=== PATIENT | female | born 1960 | race Caucasian/White ===

== ENCOUNTER 2018-06-08 11:16 | Inpatient (IN) | payer OTHER ==
[2018-06-08 12:20] LABS: #Basophils 0.1 thou/uL (0.0-0.2); #Eosinphils 0.1 thou/uL (0.0-0.7); #Lymphocytes 1.7 thou/uL (1.20-3.40); #Monocytes 0.7 thou/uL (0.11-0.59); #Neutrophils 7.3 thou/uL (1.40-6.50); %Basophils 0.6 % (0.0-1.0); %Eosinophils 1.1 % (0.0-10.0); %Lymphocytes 17.7 % (21.0-51.0); %Monocytes 6.8 % (0.0-10.0); %Neutrophils 73.8 % (42.0-75.0); Hemoglobin 12.3 g/dL (12.0-16.0); Mean Corpuscular HGB CONC 33.2 g/dL (32.0-36.0); Mean Corpuscular Volume 84.3 fL (78.0-98.0); Mean Platelet Volume 6.8 fL (7.4-10.4); Platelet Count 209 thou/uL (130-400); RBC Distribution Width 12.5 % (11.5-14.5); White Blood Cell (WBC) Count 9.8 thou/uL (4.8-10.8)
[2018-06-08 12:23] LABS: ALT (SGPT) 38 U/L (8-55); AST (SGOT) 29 U/L (5-34); Albumin 3.6 g/dL (3.5-5.0); Alkaline Phosphatase 131 U/L (40-150); Anion Gap 14 mmol/L (10-20); BUN (Urea Nitrogen) 12 mg/dL (9.8-20.1); Bilirubin, Total 0.9 mg/dL (0.2-1.2); CK (CPK) 29 U/L (29-168); Calc. Creatinine Clearance 0 mL/min (70-130); Carbon Dioxide 25 mmol/L (22-29); Chloride 107 mmol/L (98-107); Estimated GFR-MDRD 68; Globulin 3.2 g/dL (2.4-3.5); Glucose 109 mg/dL (70-105); Protein, Total 6.8 g/dL (6.0-8.3); Sodium 142 mmol/L (136-145)
[2018-06-08 12:26] LABS: CKMB 0.5 ng/mL (0-6.6); Troponin I 0.017 ng/mL (< 0.028)
[2018-06-08 13:09] LABS: PTT 29.1 SEC (22.9-36.1); Prothrombin Time 13.6 SEC (12.0-14.7)
--- NOTE | 2018-06-08 13:11 | CT ---
CTA OF THE CHEST WITH CONTRAST: Comparison: None. History: Shortness of breath, fever, Chest pain extending into the right arm. Technique: Multiple contiguous axial images were obtained in a CTA of the chest per pulmonary embolis m protocol. 3D oblique MIP reformats and direct coronal reformats were performed. FINDINGS: There are small pulmonary emboli within the subsegmental branches in the bowel lower lobes. No emboli are seen within the main pulmonary arteries. There is no shift of the intraventricular septum. Globa l cardiomegaly is seen. No hilar or mediastinal lymphadenopathy are present. There are airspace opacities in both lower lobes which may represent acute infiltrate. There is a sma ll right pleural effusion. No pneumothorax is present. No suspicious pulmonary nodule is seen. There are cysts in the liver. The other visualized subdiaphragmatic structures are unremarkable. The osseous structures and chest wall soft tissues are unremarkable. IMPRESSION: 1. Small bilateral pleural emboli in the lower lobes. 2. Bilateral lower lobe atelectasis versus infiltrates. 3. Hepatic cysts. Dr. Davidson notified of the findings at 1247 p.m. on 06-08-18. POS: [facility]
[2018-06-08] MEDS ORDERED: Enoxaparin Sodium 80 MG/0.8 ML SYRINGE ONE (13:37)
[2018-06-08 15:43] VITALS: BMI 26.2
[2018-06-08] MEDS ORDERED: Acetaminophen 325 MG TAB PO PRN (16:44)
[2018-06-08] MEDS ORDERED: Bisacodyl 5 MG TAB PO PRN (17:47)
[2018-06-08] MEDS ORDERED: Acetaminophen 650 MG Suppository PR PRN (17:47)
[2018-06-08] MEDS ORDERED: Acyclovir 400 mg Tablet PO PRN (17:49)
[2018-06-08] MEDS ORDERED: ADALIMUMAB 10 MG SC SCH (18:00)
--- NOTE | 2018-06-08 18:29 | HP ---
PRIMARY CARE PROVIDER: Mina Langston M.D. CHIEF COMPLAINT: Chest pain. HISTORY OF PRESENT ILLNESS: Ms. Cason is a pleasant 57-year-old lady who was seen at [facility] on following transfer from [facility]. She has a history of DVT and PE, provoked, 3 years ago. She was treated with Xarelto for 6 months an d has since been taking aspirin. She and her went on a trip to [place] for 3 days and returned 2 nights ago. She reports arline t she drove a little but was mostly in the vehicle as a passenger. She did notice discomfort in both legs but attributed it to sitting in a vehicle for the duration of the drip. She reports that yesterday, she started having pain in her right shoulder. The pain subsequently yoshi rated across her chest. She reports that it is on and off, sharp, 3/10, worse with deep breathing, n ot accompanied by cough, nausea or vomiting. She denies any dysuria or increased frequency of urinat ion. She also reports a temperature of 101 degrees Fahrenheit at home. REVIEW OF SYSTEMS: All other systems reviewed and found to be negative. PAST MEDICAL HISTORY: Crohn's disease, pulmonary embolism, deep vein thrombosis, positive test for t uberculosis. PAST SURGICAL HISTORY: Stomach resection. SOCIAL HISTORY: Occasional alcohol use, no tobacco use or recreational drug use. FAMILY HISTORY: Patient's sister has pulmonary embolism. Her mother of pulmonary embolism. ALLERGIES: No known drug allergies. CURRENT MEDICATIONS: Acyclovir 400 mg as directed, Humira 10 mg as directed, aspirin 81 mg daily, ca lcium carbonate 500 mg daily, vitamin D3 of 2500 units daily, vitamin B12 of 2500 mcg sublingually da delfin, multivitamins 1 tablet daily, omeprazole 40 mg daily, pyridoxine 100 mg daily, vitamin C/vitamin E/Lutein 1 capsule daily. PHYSICAL EXAMINATION: GENERAL: Ms. Cason is awake and alert, not in acute distress. VITAL SIGNS: Blood pressure is 117/72, pulse 105, respiratory rate 16, and oxygen saturation 94% on room air. Temperature here is 99.4. At [facility] ER, she had a T-max of 100.1. Pulse w as 101 there. EYES: No scleral icterus. No conjunctival pallor. ENT: Moist mucosal membranes, no oropharyngeal erythema or exudates. NECK: Supple, nontender, trachea is midline. RESPIRATORY: Accessory muscles of breathing are not active. Chest wall movements are symmetric bila terally. LUNGS: Clear to auscultation without wheeze, rhonchi or crepitations. CARDIOVASCULAR: S1 and S2 are heard, regular. Peripheral pulses palpable. No carotid bruit, no per icardial rub. ABDOMEN: Soft, nontender, bowel sounds are heard, no hepatomegaly, no splenomegaly. NEUROLOGIC: Cranial nerves II-XII intact. Deep tendon reflexes are 2+. MUSCULOSKELETAL: Power is 5/5 in all 4 extremities. Homans sign is negative bilaterally. SKIN: No rashes or subcutaneous nodules. LYMPHATIC: No cervical lymphadenopathy. PSYCHIATRIC: Normal mood, normal affect, patient is oriented to person, place, and time. LABORATORY DATA: Ms. Cason's labs and investigations were reviewed. She had an electrocardiogram, which was normal sinus rhythm, no ST changes to suggest an acute coronary syndrome. She also had CT angiogram of the chest, which shows small bilateral pulmonary emboli in the lower lobes. She has aaron ateral lower lobe atelectasis versus infiltrates as well as hepatic cysts. She has an unremarkable C BC, INR 1.0, unremarkable comprehensive metabolic profile, normal BNP and normal troponin I. ASSESSMENT AND PLAN: Ms. Cason is a pleasant 57-year-old lady who was seen at [facility] [place] [facility] on 06/08/2018. Her problem list includes: 1. Chest pain: Likely secondary to pulmonary embolism, although pulmonary infection cannot be defin itely ruled out at this time. She will be admitted to the hospital for further management. 2. Pulmonary embolism: Patient has received a dose of Lovenox, which I will continue. We will also consult Pulmonology Service for management of recurrent pulmonary embolism. She has used rivaroxaba n in the past and is agreeable to using novel oral anticoagulant agents. 3. Pneumonia: The patient has fevers but does not have cough or sputum. Given the radiologic findi ngs, we will start her on empiric antibiotics for now, which may be discontinued if she stops having fevers. We will also check influenza screen. 4. Crohn's disease: Appears to be stable. Many thanks for allowing me to participate in your patient's care. Please feel free to contact me wi th any questions or concerns. LEVEL OF RISK: Moderate. LEVEL OF COMPLEXITY: Moderate.
[2018-06-08] MEDS: Enoxaparin Sodium 80 MG/0.8 ML SYRINGE SC SCH (21:32)
[2018-06-08] MEDS: cefTRIAXone\\ROCEPHIN 1 GM in Sodium Chloride 0.9% 100 ML IVPB SCH (22:55)
[2018-06-09] MEDS: Azithromycin 500 MG in Sodium Chloride 0.9% 250 ML 250 ML IVPB SCH ×2 (00:18→20:34)
[2018-06-09 05:45] LABS: Anion Gap 13 mmol/L (10-20); BUN (Urea Nitrogen) 13 mg/dL (9.8-20.1); Calc. Creatinine Clearance 103 mL/min (70-130); Calcium 8.3 mg/dL (7.8-10.44); Carbon Dioxide 22 mmol/L (22-29); Chloride 108 mmol/L (98-107); Estimated GFR-MDRD 79; Glucose 96 mg/dL (70-105); Potassium 3.8 mmol/L (3.5-5.1); Sodium 139 mmol/L (136-145)
[2018-06-09 05:51] LABS: #Basophils 0.1 thou/uL (0.0-0.2); #Eosinphils 0.4 thou/uL (0.0-0.7); #Lymphocytes 2.7 thou/uL (1.20-3.40); #Monocytes 0.8 thou/uL (0.11-0.59); #Neutrophils 4.5 thou/uL (1.40-6.50); %Basophils 0.8 % (0.0-1.0); %Eosinophils 4.8 % (0.0-10.0); %Lymphocytes 31.7 % (21.0-51.0); %Monocytes 9.5 % (0.0-10.0); %Neutrophils 53.1 % (42.0-75.0); Hemoglobin 11.8 g/dL (12.0-16.0); Mean Corpuscular HGB CONC 32.7 g/dL (32.0-36.0); Mean Corpuscular Hemoglobin 29.2 pg (27.0-31.0); Mean Corpuscular Volume 89.3 fL (78.0-98.0); Mean Platelet Volume 6.6 fL (7.4-10.4); Platelet Count 191 thou/uL (130-400); RBC Distribution Width 13.1 % (11.5-14.5); Red Blood Cell (RBC) Count 4.03 mill/uL (4.20-5.40); White Blood Cell (WBC) Count 8.5 thou/uL (4.8-10.8)
--- NOTE | 2018-06-09 08:45 | CON ---
DATE OF CONSULTATION: 06/08/2018 REASON FOR CONSULTATION: History of Crohn's disease. REASON FOR ADMISSION: Acute pulmonary embolus. HISTORY OF PRESENT ILLNESS: Ms. 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 There, she noted that she was short of breath and was concerned that maybe she had a pulmonary embolus, as she felt the way she had when she had a pulmonary embolus several years ago. That occurred when she was in a walking boot for some type of foot injury on her left leg and she de veloped DVTs in her left leg, and then went on to develop pulmonary emboli. This was when she was ou t of state. She reports that at that time she had been evaluated by Hematology, found to have underl angelica clotting defect. At this time, she states that she has been doing pretty well with her Crohn's. She drove 36 hours up to [place] to bring her daughter a car recently. When she came back, she fe lt again the shortness of breath. She denies any overt leg pain. She was pretty dyspneic on exertio n, little bit dizzy standing up. She has had no overt hematemesis. She did state that initially she had some bilateral lower leg discomfort, but no overt swelling that she had noticed since she began having in pain in her right shoulder. Chest pain on and off, which would be worse with deep breath a ssociated with some shortness of breath. She also did report temperature of 101 at home. PAST MEDICAL HISTORY: Significant for Crohn's disease. She has had previous pulmonary embolism as n oted above. She had DVT as noted above. She had a positive TB skin test and was started on INH by Minda Singer and that was before of her starting a therapy for the Crohn's. PAST SURGICAL HISTORY: Intestinal resection. SOCIAL HISTORY: Alcohol use. No tobacco or drug use. FAMILY HISTORY: The patient's sister had pulmonary embolism. Her mother of pulmonary embolism. The patient reports that she has been tested for pulmonary embolism, and it was negative, but we willis ve no record of that. ALLERGIES: None. MEDICATIONS: Acyclovir; Humira 40 mg IV every other week, she has been on for about 6-8 weeks now; a spirin 81 mg a day; calcium carbonate 500 mg daily; vitamin D3, B12, multivitamin, omeprazole, pyrido xine, vitamin C, and INH. PHYSICAL EXAMINATION: GENERAL: She is resting in bed. She has her son and at bedside. She is in no distress. Beba bonilla has a little bit of an auditory wheeze with deep breath. VITAL SIGNS: Blood pressure 173/72, pulse 105, respirations 16, oxygen saturation 94% on room air, t emperature 99.4. She had T-max 100.1 in [facility] with a pulse of 101 at that time. NECK: Supple without lymphadenopathy. LUNGS: Clear. HEART: Regular rate and rhythm. ABDOMEN: Soft and nontender with a palpable hepatosplenomegaly. EXTREMITIES: No clubbing, cyanosis, or edema. No overt swelling is noted in the lower extremities. LABORATORY AND X-RAY FINDINGS: CT angiogram of the chest showed small bilateral pulmonary emboli wit hin the lower lobes and bilateral lower lobe atelectasis versus infiltrate. She also had hepatic cys t noted. INR is 1. White count is 7.8, hemoglobin 12.3, platelet count is 209. The patient's AST a nd ALT are 29 and 38, alkaline phosphatase is 131. Glucose is 109. ASSESSMENT: 1. Pulmonary embolus. She needs to be started on full-dose anticoagulation, which has been done by the Hospitalist. 2. I would consider consulting Hematology and have her evaluated for clotting disorder as she has go t a sister and her mom who have had blood clotting issues in the past. This is her second problem __ ___ she has had some exacerbating situations that is trauma in her left leg and at this time dr pope in a car for a long time and has underlying hypercoagulable state i.e., inflammatory bowel dise ase. With this family history, it may be reasonable to have this evaluated again. 3. With regard to her Crohn's, I would continue on her Humira. 4. With regard to her liver function tests, these were noted to be abnormal in the outpatient settin g, but are normal now. 5. She has a history of positive TB screen, was on INH, and was supposed to be on it I think for a f ew more months, but I will check my office records on that. PLAN: I agree with anticoagulation taking her Humira and her multivitamins. We will re-evalua te her in terms of inflammatory markers in the stool and response to therapy in the outpatient javier cuenca, but no acute process with the Crohn's now. She seems to have decreased in bowel function from 10- 15 bowels a day to 5 a day since starting the Humira 6 or 8 weeks ago. She has had no bleeding. Her weight is stable. I will follow along with you.
[2018-06-09] MEDS: Cyanocobalamin (Vitamin B-12) 1,000 MCG TAB PO SCH (09:37)
[2018-06-09] MEDS: Multivit, Therapeutic 1 TAB PO SCH (09:38)
[2018-06-09] MEDS: pyridOXINE 50 MG (B6) TAB PO SCH (09:38)
[2018-06-09] MEDS: Calcium Carbonate 500 MG TAB PO SCH (09:40)
[2018-06-09] MEDS: Vit A,C & E/Lutein/Minerals Tablet PO SCH (09:40)
[2018-06-09] MEDS: Enoxaparin Sodium 80 MG/0.8 ML SYRINGE SC SCH (09:50)
--- NOTE | 2018-06-09 10:01 | CON ---
DATE OF CONSULTATION: 06/09/2018 CONSULTING PHYSICIAN: Hospitalist group. REASON FOR CONSULTATION: Pulmonary embolism. HISTORY OF PRESENT ILLNESS: A 57-year-old female who just completed a 36-hour trip in a car back and forth from [place]. She developed right shoulder pain. She came to the hospital. She had a CT pu lmonary angiogram which showed bilateral pulmonary emboli and perhaps pulmonary infarctions. She has previous history of pulmonary emboli and DVT several years ago. She was on anticoagulation for 6 mo nths before it was discontinued. She has had no hemoptysis. She has no bleeding diathesis except wh en she has exacerbations of her Crohn's. PAST MEDICAL HISTORY: 1. Crohn's. 2. Pulmonary emboli. 3. Deep venous thrombosis. 4. Positive PPD. PAST SURGICAL HISTORY: Partial stomach resection. SOCIAL HISTORY: Nonsmoker. Occasionally drinks alcohol, does not use illicit drugs. FAMILY MEDICAL HISTORY: Mother of a pulmonary embolism. A sister had a PE. ALLERGIES: None. MEDICATIONS PRIOR TO ADMISSION: Acyclovir, Humira, aspirin, calcium carbonate, vitamin D3, vitamin B 12, multivitamin, omeprazole, paroxetine, vitamin C, vitamin E and Lutein. Doses are listed in the hi story and physical. PHYSICAL EXAMINATION: VITAL SIGNS: Temperature 99.2, pulse 74, respirations 18, O2 sat 92% on room air, blood pressure 90/ 51. GENERAL: She is awake and alert and in no distress. HEENT: Unremarkable. NECK: No adenopathy or JVD, no bruits. LUNGS: Clear without wheeze or rhonchi. CARDIAC: S1, S2 regular, without murmur. ABDOMEN: Soft, nontender. EXTREMITIES: No clubbing, cyanosis, or edema. LABORATORY DATA: Sodium 139, potassium 3.8, chloride 108, CO2 22, BUN 13, creatinine 7, glucose 96. INR 1, PTT 29.1. Sodium 139, potassium 3.8, chloride 108, CO2 of 22, BUN 13, creatinine 0.7, glucos e 96. BNP 70. CT pulmonary angiogram; I reviewed the films personally, see pulmonary emboli in bilateral lower lobe s. ASSESSMENT: 1. Pulmonary emboli - second episode. 2. Low-grade fever. 3. Possible pulmonary infarction versus pneumonitis. RECOMMENDATIONS: 1. She will need lifelong anticoagulation. I would favor putting her on Eliquis 10 mg twice daily f or 10 days, then 5 mg twice daily thereafter. 2. Check echocardiogram to establish baseline as far as possible pulmonary hypertension and right ve ntricular strain. 3. Check lower extremity Dopplers. 4. Can continue antibiotics for about 5 days, but again I doubt that we are dealing with acute pneum onitis. 5. Hypercoagulable workup is not necessary as she is going to be on lifelong anticoagulation. In or luis manuel to perform that workup, anticoagulation would have to be stopped and I would not favor stopping h er anticoagulation for any reason.
[2018-06-09] MEDS: Apixaban 5 MG TAB PO SCH ×2 (11:19→20:27)
--- NOTE | 2018-06-09 11:56 | ULT ---
BILATERAL LOWER EXTREMITY VENOUS ULTRASOUND WITH DOPPLER: Date: 06/09/18 HISTORY: Left lower lobe PE. COMPARISON: None. TECHNIQUE: Casanova scale, color flow, Doppler imaging, and spectral waveform analysis performed of the left and rig ht lower extremity deep venous system. FINDINGS: There is sluggish flow throughout both lower extremity venous systems. There is lack of compressibility and flow in the mid to distal right posterior tibial vein. There is compressibility, presence of flow, and augmentation in the left and right common femoral vei n, femoral vein, and popliteal vein. There is flow in bilateral greater saphenous veins and profunda veins. IMPRESSION: Thrombus in the right lower extremity deep venous system, specifically the posterior tibial vein. POS: [facility]
[2018-06-09] MEDS: Acetaminophen 325 MG TAB PO PRN ×2 (12:09→20:27)
--- NOTE | 2018-06-09 12:36 | PDOC.PN ---
- Subjective Encounter Start Date: 06/09/18 Encounter Start Time: 09:15 Subjective: no sob or chest pain or palp -: feels better this am - Objective MAR Reviewed: Yes Vital Signs & Weight: Vital Signs (12 hours) Temp Pulse Resp BP BP Pulse Ox 06/09/18 11:21 100.2 F H 90 20 109/68 93 L 06/09/18 04:00 99.2 F 74 18 90/51 L 92 L Weight Weight 178 lb I&O: 06/08/18 06/09/18 06/10/18 06:59 06:59 06:59 Intake Total 480 Balance 480 Result Diagrams: 06/09/18 05:23 06/09/18 05:23 Phys Exam - Physical Examination HEENT: PERRLA, moist MMs Neck: no JVD, supple Respiratory: no wheezing, no rales Cardiovascular: RRR, no significant murmur Gastrointestinal: soft, non-tender, no distention, positive bowel sounds Musculoskeletal: no edema, pulses present Neurological: non-focal, moves all 4 limbs Psychiatric: normal affect, A&O x 3 Dx/Plan (1) Pulmonary embolus Code(s): I26.99 - OTHER PULMONARY EMBOLISM WITHOUT ACUTE COR PULMONALE Status : Acute Qualifiers: Pulmonary embolism type: other Chronicity: acute Acute cor pulmonale presence: without acute cor pulmonale Qualified Code(s): I26.99 - Other pulmonary embolism without acute cor pulmonale (2) DVT (deep venous thrombosis) Code(s): I82.409 - ACUTE EMBOLISM AND THOMBOS UNSP DEEP VN UNSP LOWER EXTREMITY Status: Acute Qualifiers: DVT location: lower extremity Affected thrombotic vein of extremity: popliteal Chronicity: acute Laterality: right Qualified Code(s): I82.431 - Acute embolism and thrombosis of right popliteal vein (3) Crohn disease Code(s): K50.90 - CROHN'S DISEASE, UNSPECIFIED, WITHOUT COMPLICATIONS Status: Chronic Qualifiers: Gastrointestinal tract location: unspecified location Comment: on gabino (4) Chronic anemia Code(s): D64.9 - ANEMIA, UNSPECIFIED Status: Chronic - Plan is on lovenox full dose, to start eliquis for life -: prior h/o PE 3 yrs back -: had tmax of 100 last 24hrs -: is on ceftriaxone and zithromax for now -: may tx to medical floor later today * . Review of Systems - Medications/Allergies Allergies/Adverse Reactions: Allergies Allergy/AdvReac Type Severity Reaction Status Date / Time No Known Allergies Allergy Verified 06/08/18 16:59 Medications: Current Medications Acetaminophen (Tylenol) 650 mg PO Q4H PRN PRN Reason: Headache/Fever or Pain Last Admin: 06/09/18 12:09 Dose: 650 mg Acetaminophen (Tylenol) 650 mg UT Q4H PRN PRN Reason: Headache/Fever or Pain Acyclovir (Zovirax) 400 mg PO ASDIR PRN PRN Reason: as directed Apixaban (Eliquis) 10 mg PO BID [facility] Last Admin: 06/09/18 11:19 Dose: 10 mg Bisacodyl (Dulcolax) 10 mg PO DAILYPRN PRN PRN Reason: Constipation Calcium Carbonate (Oscal-500) 500 mg PO DAILY [facility] Last Admin: 06/09/18 09:40 Dose: 500 mg Cholecalciferol (Vitamin D3) 2,500 units PO DAILY [facility] Last Admin: 06/09/18 09:38 Dose: 2,500 units Cyanocobalamin (Vitamin B-12) 2,500 mcg PO DAILY [facility] Last Admin: 06/09/18 09:37 Dose: 2,500 mcg Azithromycin 500 mg/ Sodium (Chloride) 250 mls @ 250 mls/hr IVPB Q24HR [facility] Last Admin: 06/09/18 00:18 Dose: 250 mls Ceftriaxone Sodium 1 gm/ (Sodium Chloride) 100 mls @ 200 mls/hr IVPB Q24HR [facility] Last Admin: 06/08/18 22:55 Dose: 100 mls Multivitamins (Theragran) 1 tab PO DAILY [facility] Last Admin: 06/09/18 09:38 Dose: 1 tab Multivitamins/Minerals (Ocuvite With Lutein) 1 tab PO DAILY [facility] Last Admin: 06/09/18 09:40 Dose: 1 tab (Adalimumab [Humira (Pen] 10 Mg)) 10 mg SC ASDIR [facility] Pantoprazole Sodium (Protonix) 40 mg PO DAILY [facility] Last Admin: 06/09/18 09:41 Dose: 40 mg Pyridoxine HCl (Vitamin B 6) 100 mg PO DAILY [facility] Last Admin: 06/09/18 09:38 Dose: 100 mg
--- NOTE | 2018-06-09 19:40 | PRG ---
DATE OF SERVICE: 06/09/2018 Ms. Cason is feeling better. Her breathing is better. PHYSICAL EXAMINATION: VITAL SIGNS: Temperature max 100.2, temperature current 98.9, respirations 18, blood pressure 102/60 . LUNGS: Clear. HEART: Regular rate and rhythm. ABDOMEN: Nontender. LABORATORY STUDIES: White count is 7.5, hemoglobin 11.8, platelet count 191. Electrolytes within no rmal limits. ASSESSMENT: 1. Pulmonary embolus a venogram of her leg shows DVT, right lower extremity posterior tibial vein. 2. Her embolus is more periphery and small branch vessels and she is actually improving clinically. 3. There is concern for possible pneumonia with infiltrate on chest x-ray, unclear if this is infarc tion infiltrate, talk with Dr. Huynh is recommended, five more days of antibiotics. 4. It has been recommended that she has lifelong anticoagulation, which is very reasonable secondary to deep venous thrombosis and pulmonary embolus. 5. Inflammatory bowel disease. She is stable, would go ahead and we will continue her Humira. PLAN: The patient will be going home the next day or so, and she can follow up as an outpatient.
[2018-06-09] MEDS: cefTRIAXone\\ROCEPHIN 1 GM in Sodium Chloride 0.9% 100 ML IVPB SCH (21:55)
[2018-06-10] MEDS ORDERED: Clopidogrel Bisulfate 75 MG TAB ONE (07:20)
[2018-06-10 07:46] VITALS: BP 115/67; TEMP 98.6
[2018-06-10] MEDS: Calcium Carbonate 500 MG TAB PO SCH (08:06)
[2018-06-10] MEDS: pyridOXINE 50 MG (B6) TAB PO SCH (08:07)
[2018-06-10] MEDS: Vit A,C & E/Lutein/Minerals Tablet PO SCH (08:07)
[2018-06-10] MEDS: Multivit, Therapeutic 1 TAB PO SCH (08:07)
[2018-06-10] MEDS: Cyanocobalamin (Vitamin B-12) 1,000 MCG TAB PO SCH (08:08)
[2018-06-10] MEDS: Apixaban 5 MG TAB PO SCH (08:09)
--- NOTE | 2018-06-10 08:59 | PRG ---
DATE OF SERVICE: 06/10/2018. SUBJECTIVE: The patient is doing well and has no complaints. Echo was negative, but Doppler of lowe r extremities showed a right posterior tibial DVT. OBJECTIVE: VITAL SIGNS: Temperature is 98.6, pulse 82, respirations 16, O2 sat 96%, blood pressure 115/67. HEENT: Unremarkable. NECK: No adenopathy or JVD. CHEST: Clear. CARDIAC: S1 and S2 regular. ABDOMEN: Soft. EXTREMITIES: No edema. ASSESSMENT: Pulmonary embolism/deep venous thrombosis. PLAN: 1. Eliquis 10 mg twice daily for the first week, then 5 mg twice daily thereafter and lifelong. 2. Omnicef, complete 5 days of treatment. She will follow up in the office in a couple of months.
[2018-06-10] MEDS ORDERED: Isoniazid 100 MG TAB PO SCH (09:00)
--- NOTE | 2018-06-10 10:24 | PDOC.PN ---
- Subjective Encounter Start Date: 06/10/18 Encounter Start Time: 08:00 Subjective: no sob or palp, feels better -: is amb in room - Objective MAR Reviewed: Yes Vital Signs & Weight: Vital Signs (12 hours) Temp Pulse Resp BP Pulse Ox 06/10/18 08:09 98.6 F 82 16 96 06/10/18 07:46 98.6 F 82 16 115/67 96 06/10/18 04:00 98.5 F 73 18 97/59 L 93 L 06/10/18 00:00 98.7 F 82 18 95/61 92 L Weight Weight 178 lb I&O: 06/09/18 06/10/18 06/11/18 06:59 06:59 06:59 Intake Total 480 Balance 480 Result Diagrams: 06/09/18 05:23 06/09/18 05:23 Phys Exam - Physical Examination HEENT: PERRLA, moist MMs Neck: no JVD, supple Respiratory: no wheezing, no rales Cardiovascular: RRR, no significant murmur Gastrointestinal: soft, non-tender, positive bowel sounds Musculoskeletal: no edema, pulses present Neurological: non-focal, moves all 4 limbs Psychiatric: normal affect, A&O x 3 Dx/Plan (1) Pulmonary embolus Code(s): I26.99 - OTHER PULMONARY EMBOLISM WITHOUT ACUTE COR PULMONALE Status : Acute Qualifiers: Pulmonary embolism type: other Chronicity: acute Acute cor pulmonale presence: without acute cor pulmonale Qualified Code(s): I26.99 - Other pulmonary embolism without acute cor pulmonale (2) DVT (deep venous thrombosis) Code(s): I82.409 - ACUTE EMBOLISM AND THOMBOS UNSP DEEP VN UNSP LOWER EXTREMITY Status: Acute Qualifiers: DVT location: lower extremity Affected thrombotic vein of extremity: popliteal Chronicity: acute Laterality: right Qualified Code(s): I82.431 - Acute embolism and thrombosis of right popliteal vein (3) Crohn disease Code(s): K50.90 - CROHN'S DISEASE, UNSPECIFIED, WITHOUT COMPLICATIONS Status: Chronic Qualifiers: Gastrointestinal tract location: unspecified location Comment: on humira (4) Chronic anemia Code(s): D64.9 - ANEMIA, UNSPECIFIED Status: Chronic (5) Latent tuberculosis Status: Chronic Comment: on INH and vit B6 - Plan hemostable -: continue eliquis as prescribed -: dc pt home -: d/w * .
--- NOTE | 2018-06-10 21:35 | DIS ---
DATE OF ADMISSION: 06/08/2018 DATE OF DISCHARGE: 06/10/2018 DISCHARGE DISPOSITION: To home. PRIMARY DISCHARGE DIAGNOSES: 1. Acute pulmonary embolism with right lower extremity deep venous thrombosis. 2. History of prior pulmonary embolism and deep venous thrombosis 3 years back. 3. History of Crohn's disease. 4. Chronic anemia. 5. Latent tuberculosis on INH and vitamin B6. PROCEDURES DONE DURING HOSPITALIZATION: The patient has had ultrasound venous Doppler done, which sh owed thrombus in the right lower extremity, specifically in the posterior tibial vein. CT angio ches t done showed small bilateral pleural emboli in the lower lobes, bilateral lower lobe atelectasis sb anastasia infiltrates, hepatic cysts were seen. Echo with 2D Doppler showed EF of 65% to 70%. Blood cultu res x2 no growth. Influenza A and B antigens were negative. H&H 11 and 36, platelet count 191, MCV is 89. PT, INR, PTT was within normal limits on the day of admission. BNP 70. One set of troponin was negative. BUN 13, creatinine 0.7. DISCHARGE MEDICATIONS: Eliquis 10 mg p.o. twice daily for another 6 days, then 5 mg p.o. twice daily thereafter for life, Omnicef 300 mg p.o. twice daily for 4 days, isoniazid 300 mg p.o. daily, vitami n B6 of 100 mg p.o. daily, omeprazole 40 mg p.o. daily, multivitamin 1 tab once daily, vitamin B12 of 2500 mcg sublingual daily, vitamin D3 of 2500 units p.o. daily, aspirin 81 mg p.o. daily, and Humira as before for Crohn's disease. ALLERGIES: No known drug allergies. INPATIENT CONSULTS: Dr. Huynh for Pulmonology. BRIEF COURSE DURING HOSPITALIZATION: The patient initially got admitted on the with complaints of chest pain. The patient was on a road trip to [place] for 3 days. She has had ultrasound venous Doppler and CT angio chest done, both of which showed clots. She was placed initially on Lovenox an d patient was switched over to Eliquis. She has had prior history of DVT and PE 3 years ago. In vie w of this history, she has been advised to continue Eliquis for life. She also had a fever on arriva l and patient was on Humira with a CAT scan suspicious for possible infiltrate versus atelectasis. S he was placed on antibiotics and needs to continue for another 4 days. She has otherwise remained he modynamically stable and is ambulating in the hallway. Her chest pain is completely resolved. She h as been cleared by Dr. Huynh for discharge. Please see a [id number] documentation on [facility] fo r the day of discharge.
--- NOTE | 2018-06-11 16:59 | PQF ---
DALE ALMEIDA VINAYA KUMAR MD [phone] [facility] [id number] CLINICAL DOCUMENTATION CLARIFICATION FORM: POST DISCHARGE Addendum to original discharge summary date: ____ Late entry note date: __ DATE: 06/11/2018 ATTN: MONIKA SKINNER MD Please exercise your independent, professional judgment in responding to the clarification form. Clinical indicators are provided on the bottom of this form for your review Please check appropriate box(s) to clarify if the following diagnosis has been ruled in or ruled out: PNEUMONIA [ ] Ruled in diagnosis [ ] Continue to treat [ ] Resolved [ ] Ruled out diagnosis [ ] Cannot rule out diagnosis [ ] Other diagnosis [x ] Unable to determine In addition, please specify: Present on Admission (POA): [x ] Yes [ ] No [ ] Unable to determine For continuity of documentation, please document condition throughout progress notes and discharge summary. Thank You. CLINICAL INDICATORS - SIGNS / SYMPTOMS / LABS DC Summary Bilateral lower lobe atelectasis vs infiltrates Antibiotics for another 4 days H&P Pneumonia: The patient has fevers but does not have cough or sputum. Start empiric antibiotics, which may be discontinued if she stop having fevers Also check influenza screen PN 06/09 Concern for possible pneumonia with infiltrate on chest x-ray, unclear if this is infarction Five more days of antibiotics Consultation 06/09 Possible pulmonary infarction vs pneumonitis Continue antibiotics, doubt dealing with acute pneumonitis ED Acute bilateral pulmonary infiltrates RISK FACTORS Chronic lung disease COPD Tobacco abuse TREATMENTS Antibiotics Chest x-rays Pulmonary consult (This form is maintained as a part of the permanent medical record) 2014 [employer]. All Rights Reserved [email or web address] [phone] [email or web address]
== END 2018-06-10 10:14 | disposition home or self-care (01) | DRG 299 ==
LOC: SCSER 11:16 → 2SE 15:21
PROVIDERS: ADMIT Family Medicine; ATTEND Family Medicine
DX: I82.441 Acute embolism and thrombosis of right tibial vein (principal); I26.99 Other pulmonary embolism without acute cor pulmonale; K50.90 Crohn's disease, unspecified, without complications; J98.11 Atelectasis; I82.431 Acute embolism and thrombosis of right popliteal vein; D64.9 Anemia, unspecified; R76.11 Nonspecific reaction to tuberculin skin test without active tuberculosis; Z86.711 Personal history of pulmonary embolism; Z86.718 Personal history of other venous thrombosis and embolism; Z79.01 Long term (current) use of anticoagulants
CPT/HCPCS: 36415; 71275; 80048; 80053; 82553; 83880; 84484; 85025; 85610; 85730; 87040; 87804; 93005; 93306; 93970; 96372; J0456; J0696; J1650; J7050

== ENCOUNTER 2018-10-15 13:01 | Outpatient (CLI) | payer OTHER ==
--- NOTE | 2018-10-15 16:45 | MRI ---
MRI ABDOMEN WITH AND WITHOUT CONTRAST: HISTORY: Crohn's disease of the terminal ileum. COMPARISON: CT angiography from 02/24/2017. FINDINGS: There are two separate foci of mucosal hyperenhancement and narrowing of the distal ileum, which is p roximal and distal to a saccular type dilatation of the distal ileum. There are some suture lines, w hich are likely from post surgical neurogenic bowel. These two foci of narrowing and hyperenhancemen t do not open up during the entire exam and likely represent focal areas of stricture. They first me asured a length of 6.3 cm, proximal to the saccular dilatation and then distal to the saccular dilata tion, before inserting into the large bowel. There is a hyperenhancing 10 cm length of bowel with so me underlying stricturing. No fistula is appreciated. No mesenteric adenopathy. There is increased mesenteric fat of the dista l small bowel. No other areas of small bowel hyperenhancement or stricturing are appreciated. No ev idence of penetrating disease. There are multiple hepatic cysts. The kidneys are unremarkable. No cystic structure. The pancreas is unremarkable. No intrahepatic or extrahepatic biliary dilatation. No retroperitoneal adenopathy. Aortic contour is nonaneurysmal. The marrow signal is unremarkable. IMPRESSION: 1. Evidence of two long segment foci of active disease, with stenosis of the distal ileum, both prox imal and distal to a saccular dilatation of the bowel, with adjacent suture lines, likely neurogenic in nature. No evidence of a fistulous formation. No evidence for penetrating disease. No sinus tra ct is appreciated. 2. No evidence of extraintestinal manifestations of Crohn's disease. 3. Hepatic cysts and superior pole left renal cysts. 4. 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 POS: [facility]
== END 2018-10-15 13:02 | disposition home or self-care (01) ==
LOC: MRI 13:01
PROVIDERS: ATTEND Internal Medicine Gastroenterology
DX: K50.00 Crohn's disease of small intestine without complications (principal); R89.0 Abnormal level of enzymes in specimens from other organs, systems and tissues; R76.12 Nonspecific reaction to cell mediated immunity measurement of gamma interferon antigen response without active tuberculosis; N28.1 Cyst of kidney, acquired; K76.89 Other specified diseases of liver; K56.699 Other intestinal obstruction unspecified as to partial versus complete obstruction
CPT/HCPCS: 74183; J1610

== ENCOUNTER 2019-05-18 09:09 | Outpatient (CLI) | payer OTHER ==
--- NOTE | 2019-05-18 11:50 | BD ---
DEXA BONE DENSITY STUDY: Date: 05/18/19 HISTORY: Postmenopausal. FINDINGS: Lumbar Spine: BMD (g/cm2) L1 0.776 T-Score: -1.9 L2 0.855 T-Score: -1.6 L3 0.903 T-Score: -1.6 L4 0.876 T-Score: -1.7 Total 0.854 T-Score: -1.8 Left Femoral Neck: 0.680 T-Score: -1.5 Total Femur: 0.783 T-Score: -1.3 IMPRESSION: 1. Osteopenia of the lumbar spine and left femoral neck. 2. The 10 year fracture risk for a major osteoporotic fracture is 8.2% and for a hip fracture is 0.7 %. These fracture probabilities are calculated for an untreated patient. POS: [facility]
== END 2019-05-18 09:10 | disposition home or self-care (01) ==
LOC: BICMAMMO 09:09
PROVIDERS: ATTEND Internal Medicine Gastroenterology
DX: Z13.820 Encounter for screening for osteoporosis (principal); E55.9 Vitamin D deficiency, unspecified; K50.90 Crohn's disease, unspecified, without complications; K50.00 Crohn's disease of small intestine without complications; M85.89 Other specified disorders of bone density and structure, multiple sites
CPT/HCPCS: 77080